=== PATIENT | female | born 1995 | race African-American/Black ===

== ENCOUNTER 2017-12-01 10:43 | Emergency (ER) | payer MEDICAID ==
[~2017-12-01] VITALS: Ht 154.9 cm; Wt 56.7 kg
[2017-12-01 10:55] VITALS: BP 108/55
== END 2017-12-01 13:32 | disposition home or self-care (01) ==
LOC: ER 10:48
DX: S01.442A Puncture wound with foreign body of left cheek and temporomandibular area, initial encounter (principal); L08.9 Local infection of the skin and subcutaneous tissue, unspecified; X58.XXXA Exposure to other specified factors, initial encounter; Y93.9 Activity, unspecified; Y92.89 Other specified places as the place of occurrence of the external cause; Y99.8 Other external cause status